=== PATIENT | female | born 1975 | race Asian ===

== ENCOUNTER 2016-08-10 15:55 | Outpatient (CLI) | payer OTHER ==
[~2016-08-10 15:55] MED LIST: ALBU90AE13 INH; ALBUTEROL0.083 % IN; ALPR0.5T24 PO; AMLO10TA PO; BENICAR40 MG PO; CLARITIN10 MG OR; CYCL10TA35 PO; FLUTICASONE50 MCG; FURO20TA67 PO; HYDR-2748 PO; HYDR25TA60 PO; LOPRESSOR100 MG PO; METO50TA27 PO; PROM25TA52 PO; PROZAC10 MG PO; RANI150T78 PO; [UNRECOGNIZED DRUG - SUPPLY] XX
[2016-08-10 16:41] LABS: PLATELET COUNT 259 K/uL (152-353)
[2016-08-10 17:22] LABS: POTASSIUM 3.7 mmol/L (3.6-5.2)
== END 2016-08-10 23:02 | disposition home or self-care (01) ==
LOC: LABW 15:55
PROVIDERS: Family Medicine
DX: I12.9 Hypertensive chronic kidney disease with stage 1 through stage 4 chronic kidney disease, or unspecified chronic kidney disease (principal); N18.4 Chronic kidney disease, stage 4 (severe); E11.9 Type 2 diabetes mellitus without complications; D64.89 Other specified anemias
CPT/HCPCS: 36415; 80053; 80061; 81000; 82306; 83036; 83540; 84439; 84443; 85027

== ENCOUNTER 2016-08-26 11:18 | Outpatient (CLI) | payer OTHER ==
[2016-08-26 12:42] LABS: PLATELET COUNT 173 K/uL (152-353)
[2016-08-26 14:26] LABS: POTASSIUM 3.5 mmol/L (3.6-5.2)
== END 2016-08-26 22:05 | disposition home or self-care (01) ==
LOC: LABW 11:18
PROVIDERS: Internal Medicine Nephrology
DX: N18.4 Chronic kidney disease, stage 4 (severe) (principal); R53.83 Other fatigue; D64.89 Other specified anemias; Z11.4 Encounter for screening for human immunodeficiency virus [HIV]
CPT/HCPCS: 36415; 80053; 81000; 82306; 82570; 82607; 82728; 82747; 82784; 83516; 83540; 83970; 84100; 84155; 84165; 84166; 84436; 84443; 85027; 86255; 86592; 86703; 86709; 87350; 87522; G0432

== ENCOUNTER 2016-11-16 16:10 | Emergency (ER) | payer OTHER ==
[~2016-11-16] VITALS: Ht 170.2 cm; Wt 120.7 kg
[2016-11-16 18:21] VITALS: BP 222/105; TEMP 98.6
== END 2016-11-16 18:21 | disposition home or self-care (01) ==
LOC: ED 16:10
DX: S61.432A Puncture wound without foreign body of left hand, initial encounter (principal); I10 Essential (primary) hypertension; W45.8XXA Other foreign body or object entering through skin, initial encounter; Y93.89 Activity, other specified; Y92.89 Other specified places as the place of occurrence of the external cause
CPT/HCPCS: 90715; 96372; 96374; 99284; J0360

== ENCOUNTER 2016-11-23 20:54 | Emergency (ER) | payer OTHER ==
[~2016-11-23] VITALS: Ht 170.2 cm; Wt 127.9 kg
[2016-11-23 21:56] VITALS: BP 188/101; TEMP 98.7
== END 2016-11-23 21:59 | disposition home or self-care (01) ==
LOC: ED 20:54
DX: R04.0 Epistaxis (principal); I10 Essential (primary) hypertension
CPT/HCPCS: 99281

== ENCOUNTER 2017-01-11 13:25 | Outpatient (CLI) | payer OTHER ==
[2017-01-11 13:53] LABS: PLATELET COUNT 234 K/uL (152-353)
[2017-01-11 14:38] LABS: POTASSIUM 3.4 mmol/L (3.6-5.2)
== END 2017-01-11 19:10 | disposition home or self-care (01) ==
LOC: LABW 13:25
PROVIDERS: Internal Medicine Nephrology
DX: N18.4 Chronic kidney disease, stage 4 (severe) (principal); N25.0 Renal osteodystrophy; R82.99 Other abnormal findings in urine
CPT/HCPCS: 36415; 80053; 81000; 82306; 82570; 82607; 82728; 82747; 83540; 83550; 83970; 84100; 84155; 85027; 87086; 87088

== ENCOUNTER 2017-04-08 09:45 | Outpatient (CLI) | payer OTHER ==
[2017-04-08 10:36] LABS: PLATELET COUNT 231 K/uL (152-353)
[2017-04-08 12:41] LABS: SODIUM 134 mmol/L (136-145)
== END 2017-04-08 10:45 | disposition home or self-care (01) ==
LOC: LABW 09:45
PROVIDERS: Family Medicine
DX: R06.09 Other forms of dyspnea (principal); E11.9 Type 2 diabetes mellitus without complications; G47.33 Obstructive sleep apnea (adult) (pediatric); D50.8 Other iron deficiency anemias; I12.9 Hypertensive chronic kidney disease with stage 1 through stage 4 chronic kidney disease, or unspecified chronic kidney disease; N18.4 Chronic kidney disease, stage 4 (severe)
CPT/HCPCS: 36415; 80053; 81000; 82306; 82550; 83036; 83540; 83735; 84439; 84443; 84481; 84484; 85027; 85610

== ENCOUNTER 2017-04-30 12:43 | Emergency (ER) | payer OTHER ==
[~2017-04-30] VITALS: Ht 170.2 cm; Wt 114.8 kg
[2017-04-30 12:24] VITALS: BP 216/97; TEMP 97.9
== END 2017-04-30 15:06 | disposition home or self-care (01) ==
LOC: ED 12:43
DX: R10.31 Right lower quadrant pain (principal)
CPT/HCPCS: 99281

== ENCOUNTER 2017-06-21 12:10 | Emergency (ER) | payer OTHER ==
[~2017-06-21] VITALS: Ht 170.2 cm; Wt 117.9 kg
[2017-06-21 12:15] VITALS: TEMP 98.2
[2017-06-21 12:52] LABS: PLATELET COUNT 239 K/uL (152-353)
[2017-06-21 13:32] LABS: POTASSIUM 3.4 mmol/L (3.6-5.2)
[2017-06-21 14:00] VITALS: BP 158/72
== END 2017-06-21 14:05 | disposition home or self-care (01) ==
LOC: ED 12:10
PROVIDERS: Family Medicine
DX: M54.89 Other dorsalgia (principal); G89.29 Other chronic pain; N17.8 Other acute kidney failure
CPT/HCPCS: 80053; 81000; 85027; 96374; 99284; J1170; J2405

== ENCOUNTER 2017-08-09 13:04 | Outpatient (CLI) | payer OTHER ==
[2017-08-09 15:19] LABS: PLATELET COUNT 216 K/uL (152-353)
[2017-08-09 15:24] LABS: POTASSIUM 3.5 mmol/L (3.6-5.2)
== END 2017-08-09 14:05 | disposition home or self-care (01) ==
LOC: LABW 13:04
PROVIDERS: Internal Medicine Nephrology
DX: N18.4 Chronic kidney disease, stage 4 (severe) (principal); D50.8 Other iron deficiency anemias; E55.9 Vitamin D deficiency, unspecified
CPT/HCPCS: 36415; 80053; 81000; 82306; 82570; 82607; 82728; 82747; 83540; 83550; 83970; 84100; 84155; 85027

== ENCOUNTER 2017-11-16 11:43 | Inpatient (IN) | payer OTHER ==
[~2017-11-16] VITALS: Ht 170.2 cm; Wt 114.0 kg
[2017-11-16] VITALS (7 sets, daily range): BP systolic 105–249; BP diastolic 83–115; TEMP 98–98.7
[2017-11-16 13:46] LABS: PLATELET COUNT 194 K/uL (152-353)
[2017-11-16 13:49] LABS: POTASSIUM 3.8 mmol/L (3.6-5.2)
[2017-11-17] VITALS (7 sets, daily range): BP systolic 174–198; BP diastolic 77–110; TEMP 98.1–99.1; Ht 170.2 cm; Wt 114.0 kg
[2017-11-17 08:15] LABS: PLATELET COUNT 198 K/uL (152-353)
[2017-11-17] MEDS ORDERED: ALPR0.5T24 PO (08:46)
[2017-11-17 08:48] LABS: POTASSIUM 3.3 mmol/L (3.6-5.2)
[2017-11-17] MEDS ORDERED: CLONIDINE HCL0.1 MG PO (08:49)
[2017-11-18] VITALS: BP 196/103; TEMP 97.9
[2017-11-18 04:00] VITALS: BP 176/93; TEMP 98.1
[2017-11-18 08:00] VITALS: BP 178/98; TEMP 98.7
[2017-11-18 12:12] VITALS: BP 151/79; TEMP 98.5
[2017-11-18 16:00] VITALS: BP 146/88; TEMP 97.7
[2017-11-18 19:44] VITALS: BP 150/70; TEMP 98.8
[2017-11-19 00:32] VITALS: BP 158/83; TEMP 98.1
[2017-11-19 04:00] VITALS: BP 168/71; TEMP 98
[2017-11-19 08:00] VITALS: BP 149/88; TEMP 97.6
[2017-11-19 11:29] VITALS: BP 123/81; TEMP 97.8
[2017-11-19 16:00] VITALS: BP 162/76; TEMP 98.1
[2017-11-19 19:55] VITALS: BP 155/84; TEMP 99
[2017-11-20] VITALS: BP 148/69; TEMP 98.8
[2017-11-20 04:00] VITALS: BP 168/88; TEMP 98.8
[2017-11-20 05:06] LABS: PLATELET COUNT 208 K/uL (152-353)
[2017-11-20 05:25] LABS: POTASSIUM 3.7 mmol/L (3.6-5.2)
[2017-11-20 08:00] VITALS: BP 151/83; TEMP 98
[2017-11-20 12:00] VITALS: BP 152/77; TEMP 98.1
[2017-11-20 16:00] VITALS: BP 147/78; TEMP 98
[2017-11-20 20:01] VITALS: BP 155/76; TEMP 98.6
[2017-11-21] VITALS: BP 151/79; TEMP 98.3
[2017-11-21 04:00] VITALS: BP 110/71; TEMP 97.9
[2017-11-21 05:42] LABS: POTASSIUM 4.3 mmol/L (3.6-5.2)
[2017-11-21 08:00] VITALS: BP 169/86; TEMP 98.3
== END 2017-11-21 12:47 | disposition home or self-care (01) | DRG 683 ==
LOC: ED 11:43 → MED/SURG 17:43
PROVIDERS: Emergency Medicine; ADMIT Family Medicine
PROC: 30233N1 Transfusion of Nonautologous Red Blood Cells into Peripheral Vein, Percutaneous Approach (ICD-10-PCS; principal; 2017-11-17)
DX: I12.9 Hypertensive chronic kidney disease with stage 1 through stage 4 chronic kidney disease, or unspecified chronic kidney disease (principal); N18.4 Chronic kidney disease, stage 4 (severe); J98.11 Atelectasis; J44.1 Chronic obstructive pulmonary disease with (acute) exacerbation; I16.0 Hypertensive urgency; D64.89 Other specified anemias; Z72.0 Tobacco use; K21.9 Gastro-esophageal reflux disease without esophagitis; D50.9 Iron deficiency anemia, unspecified; E87.6 Hypokalemia; R51 Headache; E66.8 Other obesity
CPT/HCPCS: 36415; 36430; 80048; 80053; 81000; 82550; 82728; 82948; 83540; 83550; 83735; 84484; 85014; 85018; 85027; 85044; 85651; 86318; 86850; 86900; 86901; 86922; 87081; 87880; 93005; 94640; 94664; 94760; 96367; 96372; 96374; 96375; 99284; J1956; J0360; J0696; J1650; J1940; J2920; J3490; P9016

== ENCOUNTER 2018-01-10 09:06 | Outpatient (CLI) | payer OTHER ==
[~2018-01-10 09:06] MED LIST changes: +CLONIDINE HCL0.1 MG PO
== END 2018-01-10 22:15 | disposition home or self-care (01) ==
LOC: RESP 09:06
DX: R06.02 Shortness of breath (principal)
CPT/HCPCS: 93306

== ENCOUNTER 2018-03-01 12:42 | Outpatient (CLI) | payer OTHER ==
[2018-03-01 13:07] LABS: PLATELET COUNT 184 K/uL (152-353)
[2018-03-01 13:23] LABS: POTASSIUM 3.7 mmol/L (3.6-5.2)
== END 2018-03-01 22:21 | disposition home or self-care (01) ==
LOC: LABW 12:42
PROVIDERS: Internal Medicine Nephrology
DX: N18.4 Chronic kidney disease, stage 4 (severe) (principal); E11.9 Type 2 diabetes mellitus without complications; D64.9 Anemia, unspecified
CPT/HCPCS: 36415; 80053; 84100; 85027

== ENCOUNTER 2018-03-14 03:06 | Outpatient (CLI) | payer OTHER | END 2018-03-14 03:09 | disposition short-term general hospital (02) | LOC: AMB 03:06 | DX: R04.0 Epistaxis (principal) | CPT/HCPCS: A0425; A0429 ==

== ENCOUNTER 2018-03-14 03:13 | Emergency (ER) | payer OTHER ==
[~2018-03-14] VITALS: Ht 170.2 cm; Wt 111.6 kg
[2018-03-14 05:19] VITALS: BP 183/90
== END 2018-03-14 05:22 | disposition home or self-care (01) ==
LOC: ED 03:13
DX: R04.0 Epistaxis (principal); I16.0 Hypertensive urgency
CPT/HCPCS: 96374; 96375; 99284; J0360; J1940; J3490

== ENCOUNTER 2018-05-11 11:23 | Outpatient (CLI) | payer OTHER ==
[2018-05-11 12:12] LABS: PLATELET COUNT 189 K/uL (152-353)
[2018-05-11 12:29] LABS: POTASSIUM 3.6 mmol/L (3.6-5.2)
== END 2018-05-11 20:09 | disposition home or self-care (01) ==
LOC: LABW 11:23
PROVIDERS: Internal Medicine Nephrology
DX: N18.4 Chronic kidney disease, stage 4 (severe) (principal); D50.8 Other iron deficiency anemias; E55.9 Vitamin D deficiency, unspecified
CPT/HCPCS: 36415; 80053; 81000; 82306; 82570; 82607; 82728; 82747; 83540; 83970; 84100; 84155; 85027

== ENCOUNTER 2019-04-09 09:27 | Inpatient (IN) | payer OTHER ==
[~2019-04-09] VITALS: Ht 170.2 cm; Wt 120.2 kg
[2019-04-09] VITALS (11 sets, daily range): BP systolic 173–213; BP diastolic 86–108; TEMP 97.8–97.9; Ht 170.2 cm; Wt 120.2 kg
[2019-04-09 10:09] LABS: PLATELET COUNT 270 K/uL (152-353)
[2019-04-09 10:18] LABS: POTASSIUM 3.4 mmol/L (3.6-5.2)
[2019-04-09 10:25] LABS: PARTIAL THROMBOPLASTIN TIME 25.3 SECONDS (24.5-33.6)
[2019-04-09] MEDS ORDERED: HYDR25TA60 PO (10:28)
[2019-04-09] MEDS ORDERED: PROVENTIL INH (10:28)
[2019-04-09] MEDS ORDERED: ZANTAC300 MG PO (10:28)
[2019-04-09] MEDS ORDERED: HYDRALAZINE25 MG PO (10:29)
[2019-04-09] MEDS ORDERED: CARV6.25 PO (10:29)
[2019-04-09] MEDS ORDERED: ALPR0.5T24 PO (15:50)
[2019-04-09] MEDS ORDERED: XANAX XR1 MG PO (15:50)
[2019-04-09] MEDS ORDERED: HYDR10TA47A PO (15:51)
[2019-04-10] VITALS: BP 238/113; TEMP 97.9
[2019-04-10 02:50] LABS: PLATELET COUNT 253 K/uL (152-353)
[2019-04-10 03:44] LABS: POTASSIUM 3.1 mmol/L (3.6-5.2)
[2019-04-10 04:00] VITALS: BP 155/78; TEMP 97.7
[2019-04-10 08:00] VITALS: BP 194/93; TEMP 97.5
[2019-04-10 12:00] VITALS: BP 153/82; TEMP 98.5
[2019-04-10 16:00] VITALS: BP 189/92; TEMP 98
[2019-04-10 20:00] VITALS: BP 177/81; TEMP 98.4
[2019-04-11] VITALS (7 sets, daily range): BP systolic 149–188; BP diastolic 63–81; TEMP 97.7–98.9
[2019-04-11 03:44] LABS: PLATELET COUNT 221 K/uL (152-353); POTASSIUM 3.5 mmol/L (3.6-5.2)
[2019-04-11 07:35] LABS: POTASSIUM 3.6 mmol/L (3.6-5.2); SODIUM 137 mmol/L (136-145)
[2019-04-11 07:41] LABS: PLATELET COUNT 231 K/uL (152-353)
[2019-04-12 03:58] VITALS: BP 159/73; TEMP 97.8
[2019-04-12 05:31] LABS: PLATELET COUNT 209 K/uL (152-353)
[2019-04-12 05:43] LABS: POTASSIUM 4.1 mmol/L (3.6-5.2)
[2019-04-12 08:20] VITALS: BP 164/79; TEMP 97.6
[2019-04-12 12:09] VITALS: BP 157/91; TEMP 97.7
== END 2019-04-12 15:55 | disposition home or self-care (01) | DRG 292 ==
LOC: ED 09:27 → MED/SURG 10:45
PROVIDERS: Family Medicine; ADMIT Student in an Organized Health Care Education/Training Program
PROC: 30233N1 Transfusion of Nonautologous Red Blood Cells into Peripheral Vein, Percutaneous Approach (ICD-10-PCS; principal; 2019-04-10)
DX: I13.2 Hypertensive heart and chronic kidney disease with heart failure and with stage 5 chronic kidney disease, or end stage renal disease (principal); N18.5 Chronic kidney disease, stage 5; I16.0 Hypertensive urgency; R07.89 Other chest pain; D50.8 Other iron deficiency anemias; E83.42 Hypomagnesemia; J44.9 Chronic obstructive pulmonary disease, unspecified
CPT/HCPCS: 36415; 80048; 80053; 80061; 80307; 81000; 82550; 82728; 83540; 83550; 83735; 83880; 84100; 84484; 85027; 85610; 85730; 86850; 86900; 86901; 86922; 93005; 93306; 94760; 96374; 96375; 99284; J1650; J1940; J2060; J2270; J3490; P9016

== ENCOUNTER 2019-06-29 13:36 | Outpatient (CLI) | payer OTHER ==
[~2019-06-29 13:36] MED LIST changes: +CARV6.25 PO; +HYDR10TA47A PO; +HYDRALAZINE25 MG PO; +PROVENTIL INH; +XANAX XR1 MG PO; +ZANTAC300 MG PO
== END 2019-06-29 13:39 | disposition short-term general hospital (02) ==
LOC: AMB 13:36
DX: R06.03 Acute respiratory distress (principal); R06.2 Wheezing; R60.0 Localized edema
CPT/HCPCS: A0425; A0427

== ENCOUNTER 2019-06-29 13:42 | Emergency (ER) | payer OTHER ==
[~2019-06-29] VITALS: Ht 170.2 cm; Wt 128.8 kg
[2019-06-29 14:23] LABS: PLATELET COUNT 191 K/uL (152-353)
[2019-06-29 14:26] LABS: SODIUM 139 mmol/L (136-145)
[2019-06-29 20:26] LABS: PARTIAL THROMBOPLASTIN TIME 25.8 SECONDS (24.5-33.6)
[2019-06-29 22:15] VITALS: BP 180/81; TEMP 98.6
== END 2019-06-29 22:15 | disposition short-term general hospital (02) ==
LOC: ED 13:42
PROVIDERS: Family Medicine
DX: R79.89 Other specified abnormal findings of blood chemistry (principal); I10 Essential (primary) hypertension; J44.9 Chronic obstructive pulmonary disease, unspecified; J18.9 Pneumonia, unspecified organism; F17.210 Nicotine dependence, cigarettes, uncomplicated
CPT/HCPCS: 80053; 81000; 84484; 85027; 85379; 85610; 85730; 87040; 93005; 94664; 96365; 96366; 96374; 96375; 96376; 99285; J0360; J0696; J2930; J3490

== ENCOUNTER 2019-06-29 22:21 | Outpatient (CLI) | payer OTHER | END 2019-06-29 23:36 | disposition short-term general hospital (02) | LOC: AMB 22:21 | DX: R06.02 Shortness of breath (principal); R60.0 Localized edema; I10 Essential (primary) hypertension; J44.9 Chronic obstructive pulmonary disease, unspecified; J18.9 Pneumonia, unspecified organism; R79.89 Other specified abnormal findings of blood chemistry | CPT/HCPCS: A0425; A0427 ==

== ENCOUNTER 2019-10-02 11:28 | Outpatient (CLI) | payer OTHER ==
[2019-10-02 12:11] LABS: PLATELET COUNT 263 K/uL (152-353)
[2019-10-02 13:09] LABS: POTASSIUM 3.9 mmol/L (3.6-5.2)
== END 2019-10-02 19:20 | disposition home or self-care (01) ==
LOC: LABW 11:28
PROVIDERS: Internal Medicine Nephrology
DX: I12.9 Hypertensive chronic kidney disease with stage 1 through stage 4 chronic kidney disease, or unspecified chronic kidney disease (principal); N18.9 Chronic kidney disease, unspecified; G47.30 Sleep apnea, unspecified; K21.9 Gastro-esophageal reflux disease without esophagitis; F32.9 Major depressive disorder, single episode, unspecified; F41.9 Anxiety disorder, unspecified; D64.9 Anemia, unspecified; E53.8 Deficiency of other specified B group vitamins
CPT/HCPCS: 36415; 80053; 80061; 81000; 82306; 82570; 82607; 82728; 82746; 83540; 83550; 83970; 84100; 84155; 85027

== ENCOUNTER 2020-01-25 11:05 | Inpatient (IN) | payer OTHER ==
[~2020-01-25] VITALS: Ht 170.2 cm; Wt 134.0 kg
[2020-01-25] VITALS (12 sets, daily range): BP systolic 178–249; BP diastolic 79–104; TEMP 98.2–98.6; Ht 170.2 cm; Wt 134.0 kg
[2020-01-25 12:40] LABS: PLATELET COUNT 220 K/uL (152-353)
[2020-01-25 12:46] LABS: POTASSIUM 3.6 mmol/L (3.6-5.2); SODIUM 138 mmol/L (136-145)
[2020-01-26] VITALS: BP 166/78; TEMP 99.7
[2020-01-26 04:00] VITALS: BP 146/84; TEMP 98.7
[2020-01-26 04:33] LABS: POTASSIUM 3.4 mmol/L (3.6-5.2)
[2020-01-26 05:34] LABS: PLATELET COUNT 204 K/uL (152-353)
[2020-01-26 08:00] VITALS: BP 156/77; TEMP 98.1
[2020-01-26 12:00] VITALS: BP 127/64; TEMP 98
[2020-01-26 16:00] VITALS: BP 157/61; TEMP 97.6
[2020-01-26 20:00] VITALS: BP 151/77; TEMP 98.4
== END 2020-01-26 22:00 | disposition left against medical advice (07) | DRG 292 ==
LOC: ED 11:05 → MED/SURG 16:15
PROVIDERS: Internal Medicine Endocrinology, Diabetes & Metabolism; ADMIT Family Medicine
DX: I13.0 Hypertensive heart and chronic kidney disease with heart failure and stage 1 through stage 4 chronic kidney disease, or unspecified chronic kidney disease (principal); N18.4 Chronic kidney disease, stage 4 (severe); N17.9 Acute kidney failure, unspecified; R07.9 Chest pain, unspecified; I50.89 Other heart failure; K21.9 Gastro-esophageal reflux disease without esophagitis; E66.01 Morbid (severe) obesity due to excess calories; D50.8 Other iron deficiency anemias; J44.9 Chronic obstructive pulmonary disease, unspecified
CPT/HCPCS: 36415; 80048; 80053; 81000; 82550; 83880; 84484; 85027; 85379; 87635; 93005; 96374; 99284; G2023; J0360; J1644; J1940; U00003

== ENCOUNTER 2020-04-28 22:45 | Emergency (ER) | payer OTHER ==
[~2020-04-28] VITALS: Ht 170.2 cm; Wt 117.9 kg
[2020-04-28 22:45] VITALS: BP 265/115; TEMP 99.7
== END 2020-04-29 00:37 | disposition home or self-care (01) ==
LOC: ED 22:50
DX: S83.8X1A Sprain of other specified parts of right knee, initial encounter (principal); S93.692A Other sprain of left foot, initial encounter; S50.311A Abrasion of right elbow, initial encounter; S80.211A Abrasion, right knee, initial encounter; S60.812A Abrasion of left wrist, initial encounter; S90.812A Abrasion, left foot, initial encounter; W10.8XXA Fall (on) (from) other stairs and steps, initial encounter; Y92.89 Other specified places as the place of occurrence of the external cause
CPT/HCPCS: 96372; 99282; J1885

== ENCOUNTER 2020-05-11 12:39 | Emergency (ER) | payer OTHER ==
[~2020-05-11] VITALS: Ht 170.2 cm; Wt 118.8 kg
[2020-05-11 12:47] VITALS: TEMP 98.9
[2020-05-11 14:16] VITALS: BP 173/77
== END 2020-05-11 14:18 | disposition home or self-care (01) ==
LOC: ED 12:39
DX: J06.9 Acute upper respiratory infection, unspecified (principal); J02.9 Acute pharyngitis, unspecified; I10 Essential (primary) hypertension; F17.210 Nicotine dependence, cigarettes, uncomplicated
CPT/HCPCS: 36415; 87502; 87651; 96372; 99283; J0696

== ENCOUNTER 2020-07-20 15:13 | Inpatient (IN) | payer OTHER ==
[~2020-07-20] VITALS: Ht 170.2 cm; Wt 149.3 kg
[2020-07-20] VITALS (11 sets, daily range): BP systolic 206–248; BP diastolic 82–111; TEMP 98.8
[2020-07-20 16:05] LABS: PLATELET COUNT 257 K/uL (152-353)
[2020-07-20 16:07] LABS: POTASSIUM 3.6 mmol/L (3.6-5.2)
[2020-07-20 16:15] LABS: PARTIAL THROMBOPLASTIN TIME 25.2 SECONDS (24.5-33.6)
[2020-07-21] VITALS: BP 180/91; BP 230/102; TEMP 98.7
[2020-07-21 04:10] VITALS: BP 194/72; TEMP 98
[2020-07-21 08:00] VITALS: BP 197/88; TEMP 98
[2020-07-21 08:11] LABS: PLATELET COUNT 264 K/uL (152-353)
[2020-07-21 08:32] LABS: POTASSIUM 3.6 mmol/L (3.6-5.2)
[2020-07-21 12:00] VITALS: BP 226/98; TEMP 97.9
[2020-07-21 16:00] VITALS: BP 190/90; TEMP 97.8
[2020-07-21 20:00] VITALS: BP 209/109; TEMP 97.7
[2020-07-22] VITALS (7 sets, daily range): BP systolic 176–210; BP diastolic 77–105; TEMP 97.6–98.9
[2020-07-22 06:08] LABS: PLATELET COUNT 236 K/uL (152-353)
[2020-07-22 06:17] LABS: POTASSIUM 3.7 mmol/L (3.6-5.2)
[2020-07-23 04:20] VITALS: BP 178/97; TEMP 98.6
[2020-07-23 05:09] LABS: PLATELET COUNT 230 K/uL (152-353)
[2020-07-23 05:19] LABS: POTASSIUM 4.1 mmol/L (3.6-5.2)
[2020-07-23 08:00] VITALS: BP 177/92
[2020-07-23 12:00] VITALS: BP 175/97; TEMP 97.6
[2020-07-23 16:00] VITALS: BP 186/92; TEMP 97.9
== END 2020-07-23 19:00 | disposition home or self-care (01) | DRG 292 ==
LOC: ED 15:13 → MED/SURG 17:00
PROVIDERS: Hospitalist; Internal Medicine Endocrinology, Diabetes & Metabolism
DX: I13.0 Hypertensive heart and chronic kidney disease with heart failure and stage 1 through stage 4 chronic kidney disease, or unspecified chronic kidney disease (principal); N18.4 Chronic kidney disease, stage 4 (severe); J44.1 Chronic obstructive pulmonary disease with (acute) exacerbation; Z68.42 Body mass index [BMI] 45.0-49.9, adult; I50.89 Other heart failure; E66.01 Morbid (severe) obesity due to excess calories; K21.9 Gastro-esophageal reflux disease without esophagitis; Z72.0 Tobacco use; E78.49 Other hyperlipidemia
CPT/HCPCS: 36415; 80048; 80053; 82550; 83880; 84443; 84484; 85027; 85610; 85730; 87502; 87635; 87651; 93005; 94760; 96374; 96375; 99284; J0360; J1100; J1650; J1940; J2405; J2930; J3490; U0003